=== PATIENT | female | born 1990 | race Caucasian/White ===

== ENCOUNTER 2016-08-11 18:23 | Emergency (ER) | payer OTHER ==
[~2016-08-11 18:23] MED LIST: ANTIVERT25 M1 PO; BACTRIM DS TABL1 TAB PO; CEPHALEXIN500 MG PO; CIPRO500 MG PO; COMPAZINE10 MG PO; ESGIC-PLUS TABL1 TAB PO; FIORICET 50-301 EAC1 PO; FLAGYL500 MG PO; FLEXERIL10 MG PO; KEPPRA500 M3 PO; MACRODANTIN100 MG PO; MEDROL4 M2 PO; MIRALAX17 G1 PO; MIRALAX17 G2 PO; MOTRIN800 MG PO; NAPROSYN500 M1 PO; NO HOME MEDICATION XX; NO MEDICATIONS; NORCO 5-325 TA1 EACH PO; NORCO 5/325 TAB1 TAB PO; NORCO 7.5/325 T1 TAB PO; OXYCODONE/APAP PO; PHENERGAN25 M1 PO; PHENERGAN25 MG/SUP1 PR; PREMARIN0.625 MG/T PO; PRENATAL1 EACH PO; PROMETHAZINE25 MG PO; ROXICET 5/325500 ML PO; TRAMADOL HCL50 M2 PO; VIBRAMYCIN PO; VIBRAMYCIN100 MG PO; ZITHROMAX250MG Z-PAK PO; ZOFRAN ODT4 MG/UDTAB PO; ZOFRAN4 M2 PO; ZOFRAN4 MG PO
== END 2016-08-11 18:30 | disposition left against medical advice (07) ==
LOC: EDMED 18:23
DX: Z53.21 Procedure and treatment not carried out due to patient leaving prior to being seen by health care provider (principal)

== ENCOUNTER 2016-08-27 16:43 | Emergency (ER) | payer SELFPAY | END 2016-08-27 19:00 | disposition T | LOC: EDMED 16:43 | DX: R51 Headache (principal); Z90.49 Acquired absence of other specified parts of digestive tract; Z90.710 Acquired absence of both cervix and uterus; F17.200 Nicotine dependence, unspecified, uncomplicated | CPT/HCPCS: J0780; J1200; J1885; J7030 ==

== ENCOUNTER 2016-08-31 21:22 | Emergency (ER) | payer SELFPAY ==
[2016-08-31] MEDS ORDERED: NORCO 5-325 TA1 EACH PO (23:40)
[2016-08-31] MEDS ORDERED: ZOFRAN ODT4 MG PO (23:40)
== END 2016-08-31 23:53 ==
LOC: EDMED 21:22
DX: S06.0X0A Concussion without loss of consciousness, initial encounter (principal); Z23 Encounter for immunization; Y08.89XA Assault by other specified means, initial encounter; Y92.009 Unspecified place in unspecified non-institutional (private) residence as the place of occurrence of the external cause

== ENCOUNTER 2016-10-15 15:39 | Emergency (ER) | payer OTHER ==
[~2016-10-15 15:39] MED LIST changes: +ZOFRAN ODT4 MG PO
[2016-10-15] MEDS ORDERED: CIPRO500 M2 PO (15:52)
[2016-10-15 17:11] LABS: BASO % 0.1 % (0-2); EOS % 2.3 % (0-7); EOSINOPHIL ABSOLUTE COUNT 0.2 tho/cmm (0.0-0.7); HCT-HEMATOCRIT 41.8 % (34.0-49.0); HGB-HEMOGLOBIN 14.3 gm/dl (12.0-15.5); IMMATURE GRANULOCYTES ABSOLUTE 0.01 tho/cmm (0-0.03); IMMATURE GRANULOCYTES PERCENT 0.1 % (0-0.3); LYMPH % 23.4 % (20-45); LYMPH ABSOLUTE COUNT 2.3 tho/cmm (0.8-4.5); MCH (MEAN CORPUSCULAR HGB) 31.3 pg (28.0-32.0); MCHC MEAN CORPUSCULAR HGB CONC 34.2 % (32.0-36.0); MCV (MEAN CELL VOLUME) 91.5 fl (82.0-96.0); MEAN PLATELET VOLUME 10.5 cmc (9.4-12.4); MONO % 9.8 % (0-12); MONOCYTE ABSOLUTE COUNT 0.9 tho/cmm (0.0-1.2); NEUTROPHIL ABSOLUTE COUNT 6.2 tho/cmm (1.6-8.0); NEUTROPHIL-AUTOMATED 6.2 tho/cmm (1.6-8.0); NEUTROPHILS % 64.3 % (40-80); PLATELET COUNT 204 tho/cmm (150-450); RED BLOOD COUNT 4.57 mil/cmm (4.00-5.20); RED CELL DISTRIBUTION WIDTH 12.7 % (12.4-16.4); WHITE BLOOD COUNT 9.6 tho/cmm (4.0-10.0)
[2016-10-15 17:20] LABS: ANION GAP 13 mmol/L (0-20); BLOOD UREA NITROGEN 16 mg/dl (6-24); CALCIUM 8.8 mg/dl (8.5-10.5); CARBON DIOXIDE-VENOUS 27 mmol/L (22-32); CHLORIDE 107 mmol/l (96-110); CREATININE 0.98 mg/dl (0.50-1.10); GLUCOSE 88 mg/dL (70-110); POTASSIUM 4.5 mmol/L (3.7-5.1); SODIUM 142 mmol/L (135-145); eGFR VALUE FOR BLACK >90 mL/Min
[2016-10-15 17:47] LABS: URINE BILIRUBIN NEGATIVE (NEG); URINE BLOOD LARGE (NEG); URINE GLUCOSE (UA) NEGATIVE (NEG); URINE KETONE NEGATIVE (NEG); URINE LEUKOCYTE ESTERASE POSITIVE (NEG); URINE NITRITE POSITIVE (NEG); URINE PROTEIN MODERATE (NEG); URINE SPECIFIC GRAVITY 1.015 (1.003-1.030)
[2016-10-15 17:48] LABS: URINE APPEARANCE CLOUDY; URINE COLOR YELLOW
[2016-10-15 17:56] LABS: URINE AMORPHOUS 2+; URINE BACTERIA 2+; URINE EPITHELIAL CELLS 0 /[HPF] (0-10); URINE RBC RARE /[HPF] (0-5); URINE WBC FULL FIELD /[HPF] (0-5)
[2016-10-15] MEDS ORDERED: KEFLEX500 M4 PO (20:03)
== END 2016-10-15 20:14 ==
LOC: EDMED 15:39
PROVIDERS: Family Medicine
DX: N10 Acute pyelonephritis (principal); Z90.710 Acquired absence of both cervix and uterus; Z90.49 Acquired absence of other specified parts of digestive tract; F17.210 Nicotine dependence, cigarettes, uncomplicated
CPT/HCPCS: J0696; J1885; J7030